=== PATIENT | female | born 1960 | race Caucasian/White ===

== ENCOUNTER 2016-08-07 22:09 | Emergency (ER) | payer OTHER ==
[~2016-08-07] VITALS: Ht 167.6 cm; Wt 116.1 kg
[~2016-08-07 22:09] MED LIST: ASPIR 8181 MG ORAL; GLIPIZIDE5 MG ORAL; IBUPROFEN600 MG ORAL; LISINOPRIL5 MG ORAL; METFORMIN HCL500 M1 ORAL; METOPROLOL TART25 MG ORAL; NKM; ROBITUSSIN COU118 M4 PO
[2016-08-07 22:30] VITALS: BP 139/79
[2016-08-07] MEDS ORDERED: AMOXICILLIN500 MG ORAL (22:51)
[2016-08-07 23:05] VITALS: BP 139/79
--- NOTE | 2016-08-08 00:22 | Emergency Room Report ---
History of Present Illness General Chief Complaint: Upper Respiratory Illness Present Illness HPI 56-year-old female presents ED complaining of runny nose, congestion and right ear pain x4 days. States pain is throbbing, 8/10, nonradiating. No other aggravating or relieving factors. Denies fevers or chills. Denies sore throat. Denies sick contacts recent travel. Denies any other associated symptom Allergies: Coded Allergies: NO KNOWN DRUG ALLERGIES (Verified Allergy, Unknown, 04/28/15) Patient History Past Medical History: DM, HTN Past Surgical History: none Pertinent Family History: none Social History: Denies: alcohol use, drug use, smoking Now: No Immunizations: UTD Reviewed Nursing Documentation: PMH: Agreed, PSxH: Agreed Nursing Documentation-PMH Hx Hypertension: Yes Hx Diabetes: Yes Hx Gastrointestinal Problems: No - Hysterectomy in 2002, Cholecystectomy in 1998, Breast implant in 1997 Review of Systems All Other Systems: negative except mentioned in HPI Physical Exam Vital Signs Date Time Temp Pulse Resp B/P Pulse Ox O2 Delivery O2 Flow Rate FiO2 08/07/16 22:19 97.7 83 16 156/86 99 Room Air Sp02 EP Interpretation: reviewed, normal General Appearance: no apparent distress, alert, GCS 15, non-toxic Head: normocephalic ENT: hearing grossly normal, normal pharynx, no angioedema, normal voice, other - R TM poor light reflex Neck: normal inspection Respiratory: chest non-tender, lungs clear, normal breath sounds, speaking full sentences Cardiovascular #1: regular rate, rhythm, no edema Gastrointestinal: normal bowel sounds, non tender, soft, non-distended, no guarding, no rebound Rectal: deferred Genitourinary: no CVA tenderness Musculoskeletal: normal inspection Neurologic: alert, oriented x3, responsive, motor strength/tone normal, sensory intact, speech normal Psychiatric: normal inspection Skin: normal inspection Lymphatic: normal inspection Medical Decision Making Diagnostic Impression: Primary Impression: Otitis media Qualified Codes: H66.91 - Otitis media, unspecified, right ear ER Course Hospital Course 56-year-old F presents to ED with pain R ear. no fever. Differential diagnoses include: TM perforation, otitis externa, otitis media Clinical course Patient placed on stretcher. After initial history, physical exam reveals a middle aged female in no acute distress. R TM poor light reflex. Remainder of physical exam unremarkable. clinical findings consistent with otitis media Diagnosis - otitis media Stable and discharged to home with Rx amoxicillin. Followup with PMD. Return to ED if symptoms recur or worsen Last Vital Signs Date Time Temp Pulse Resp B/P Pulse Ox O2 Delivery O2 Flow Rate FiO2 08/07/16 23:05 97.7 67 16 139/79 99 Room Air Status: improved Disposition: HOME, SELF-CARE Condition: Stable Scripts Amoxicillin* (AMOXIL*) 500 Mg Capsule 500 MG ORAL THREE TIMES A DAY for 10 Days, CAP Prov: SMITH CLARKE M.D. 08/07/16 Patient Instructions: Otitis Media, Adult SMITH CLARKE M.D. Aug 08, 2016 00:21
== END 2016-08-07 23:05 | disposition home or self-care (01) ==
LOC: EMR 22:32
DX: H66.91 Otitis media, unspecified, right ear (principal); E11.9 Type 2 diabetes mellitus without complications; I10 Essential (primary) hypertension; Z90.710 Acquired absence of both cervix and uterus; Z90.49 Acquired absence of other specified parts of digestive tract
CPT/HCPCS: 99283